=== PATIENT | female | born 1985 | race Caucasian/White ===

== ENCOUNTER 2016-10-08 12:39 | Emergency (ER) | payer BC, OTHER ==
[~2016-10-08] VITALS: Ht 149.9 cm; Wt 55.0 kg
[2016-10-08 13:12] LABS: APPEARANCE,URINE CLOUDY (CLEAR); GLUCOSE, URINE (UA) NEGATIVE (NEGATIVE); KETONES,URINE NEGATIVE (NEGATIVE); LEUKOCYTE ESTERASE ,URINE LARGE (NEGATIVE); OCCULT BLOOD,URINE TRACE (NEGATIVE); PH,URINE 6.5 (5.0-8.0); PROTEIN,URINE NEGATIVE (NEGATIVE)
[2016-10-08] MEDS ORDERED: FLUCONAZOLE 150 MG TABLET PO ONE (13:30)
[2016-10-08 13:46] VITALS: BP 122/70
[2016-10-08 13:55] LABS: ADD UA MICROSCOPIC YES; RBC,URINE 0-2 /HPF (0-2); SQUAMOUS EPITHELIAL CELL,UR Moderate /LPF (None Seen)
== END 2016-10-08 13:53 | disposition home or self-care (01) ==
LOC: EMS 12:42
DX: B37.3 Candidiasis of vulva and vagina (principal); Z88.0 Allergy status to penicillin
CPT/HCPCS: 87086; 99284